=== PATIENT | male | born 2005 | race African-American/Black ===

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

== ENCOUNTER 2023-08-08 14:58 | Outpatient (CLI) | payer OTHER ==
[2023-08-08 16:13] LABS: BASOPHILS % (AUTO) 0.1 % (0.0-2.0); EOSINOPHILS # (AUTO) 0.3 K/uL (0-0.4); EOSINOPHILS % (AUTO) 5.9 % (0.0-4.0); HEMATOCRIT 45.4 % (36-52); HEMOGLOBIN 15.9 g/dL (12.0-18.0); LYMPHOCYTES # (AUTO) 1.3 K/uL (2.0-11.5); LYMPHOCYTES % (AUTO) 23.8 % (20.5-51.1); MEAN CORPUSCULAR HEMOGLOBIN 30 pg (27-31); MEAN CORPUSCULAR HGB CONC 35 g/dL (33-37); MEAN CORPUSCULAR VOLUME 86.1 fL (80-94); MONOCYTES # (AUTO) 0.3 K/uL (0.8-1.0); MONOCYTES % (AUTO) 5.9 % (1.7-9.3); NEUTROPHILS # (AUTO) 3.6 K/uL (1.8-7.7); NEUTROPHILS % (AUTO) 64.3 % (42.2-75.2); PLATELET COUNT (AUTO) 259 K/uL (140-450); RED BLOOD CELL COUNT(AUTO) 5.28 MIL/uL (4.20-6.10); RED CELL DISTRIBUTION WIDTH 13.7 % (11.6-13.7); WHITE BLOOD COUNT (AUTO) 5.6 K/uL (4.5-11.0)
[2023-08-08 16:27] LABS: ALBUMIN 4.2 g/dL (3.4-5.0); ANION GAP 11.2 (8-16); CALCIUM 9.4 mg/dL (8.5-10.1); CARBON DIOXIDE 28.6 mmol/L (21-32); CHOL/HDL RATIO 2.2 (1-4.5); CREATININE 0.9 mg/dL (0.6-1.3); POTASSIUM 3.8 mmol/L (3.5-5.1); TOTAL BILIRUBIN 0.7 mg/dL (0.0-1.0); TOTAL PROTEIN, SERUM 9.2 g/dL (6.4-8.2)
[2023-08-08 18:46] LABS: AMPHETAMINE, URINE NEGATIVE ng/ml (NEG <=1000); BARBITURATE, URINE NEGATIVE ng/ml (NEG <=200)
[2023-08-08 18:47] LABS: BENZODIAZEPINE, URINE NEGATIVE ng/mL (NEG <=200); CANNABINOID, URINE NEGATIVE ng/mL (NEG <=50); COCAINE, URINE NEGATIVE ng/mL (NEG <=300); OPIATE, URINE NEGATIVE ng/mL (NEG <=2000); PHENCYCLIDINE SCREEN,URINE NEGATIVE ng/mL (NEG <=25)
[2023-08-09 08:08] LABS: T4 (THYROXINE) 7.1 ug/dL (4.5-12.0)
[2023-08-09 09:07] LABS: HEMOGLOBIN A1C 5.4 % (4.8-5.6)
== END 2023-08-08 22:04 | disposition home or self-care (01) ==
LOC: MLB 14:58
DX: Z13.1 Encounter for screening for diabetes mellitus (principal); Z13.9 Encounter for screening, unspecified; Z13.220 Encounter for screening for lipoid disorders; E55.9 Vitamin D deficiency, unspecified; R82.5 Elevated urine levels of drugs, medicaments and biological substances
CPT/HCPCS: 36415; 80053; 80305; 82306; 83036; 84436; 84443; 84480; 85025